=== PATIENT | male | born 1980 | race Caucasian/White ===

== ENCOUNTER 2018-07-08 06:25 | Day surgery (SDC) | payer BC ==
[2018-07-07 13:50] VITALS: BMI 27.2
[2018-07-08] MEDS ORDERED: Midazolam 2 MG/2 ML VIAL ONE (07:56)
[2018-07-08] MEDS ORDERED: Propofol 10 mg/ml Inj (20 ML) ONE ×2 (07:56→08:16)
--- NOTE | 2018-07-08 07:58 | CP.SDSHP ---
Same Day Surgery H & P - History Proposed Procedure: EGD Pre-Op Diagnosis: heartburn - Allergies Allergies: Allergies No Known Allergies Allergy (Verified 07/08/18 06:42) - Physical Exam General Appearance: NAD Vital Signs: Vital Signs 07/08/18 06:40 Temperature 98.4 F Pulse Rate 65 Respiratory 19 Rate Blood Pressure 122/79 O2 Sat by Pulse 99 Oximetry Mental Status: Alert & Oriented x3 Neuro: WNL Heart: WNL Lungs: WNL GI: WNL - {Optional Preform as Required} Abdomen: WNL - Impression Pt. Evaluated Today:Candidate for Anesthesia & Procedure: Yes - Date & Time Date: 07/08/18 Time: 07:58 Short Stay Discharge - Short Stay Discharge Admitting Diagnosis/Reason for Visit: GERD Disposition: HOME/ ROUTINE
[2018-07-08] MEDS ORDERED: Lactated Ringer's 500 ML IV ONE (08:00)
[2018-07-08 08:58] VITALS: O2SAT 100
[2018-07-08 09:51] VITALS: BP 111/7; PULSE 72; RESP 16; TEMP 97.3
== END 2018-07-08 09:45 | disposition home or self-care (01) ==
LOC: C.ENDO 06:25
PROVIDERS: ATTEND Internal Medicine Gastroenterology
DX: K21.0 Gastro-esophageal reflux disease with esophagitis (principal); K44.9 Diaphragmatic hernia without obstruction or gangrene; K29.50 Unspecified chronic gastritis without bleeding
CPT/HCPCS: 43239; 88305; 88312; 88313; 88342; J2001; J2250; J2704; J3010; J7120